=== PATIENT | male | born 1985 | race Two or more races ===

== ENCOUNTER → 2025-01-24 | Outpatient (CLI) | payer MEDICAID, SELFPAY ==
--- NOTE | 2025-01-24 12:30 | XR_ITS ---
Examination: MRI of brain without intravenous contrast. MRI brain with intravenous contrast. Date and time of exam:January 24, 2025: 31 hours INDICATIONS: Diagnosis pituitary macroadenoma post surgical resection April Technique: Multiple axial and sagittal images of the brain to been obtained. Siemens high-resolution 1.52 Gabbie short bore scanner utilized. Sagittal sections, T1 weighted images, TR 500, TE 14, are performed. Axial sections proton-density and T2-weighted images have been obtained. Inversion recovery axial images, TR 9260, TE 111, TR 2500. Diffusion weighted images, axial sections, TR 4800, TE 128, B value 1000. Axial sections, ADC map, TR 4800, TE 128. Axial and coronal images were also obtained post 15 cc gadolinium administered intravenously. Findings:: Enlargement of the sella turcica is not present. The optic chiasm and infundibular stalk are not remarkable. There is no localized enlargement of the medulla or edd. Fourth ventricle and cerebellar tonsils appear normal in position. No subacute area of hemorrhage density is seen. Fourth ventricle is midline. Mass in the cerebellopontine angle region is not evident. 7th and 8th nerve complexes exhibit symmetry Globes are symmetrical Orbital musculature including medial lateral rectus muscles do not exhibit abnormality Increased white matter signal is not seen Effacement of the cortical sulcal markings is not identified. Mass effect upon the ventricular system is not identified. Diffusion-weighted images demonstrate no focus of restricted diffusion Contrast images demonstrate apparent surgical material in the sphenoid air cells with no current definite pituitary mass No enhancing cerebellar or cerebral lesions Impression: Apparent postsurgical changes in the sphenoid air cells and sella turcica, no current pituitary macroadenoma noted
== END | disposition home or self-care (01) ==
LOC: SMRI 12:04
PROVIDERS: PCP Internal Medicine
DX: D35.2 Benign neoplasm of pituitary gland (principal); Z98.890 Other specified postprocedural states
CPT/HCPCS: 70553; A9579